=== PATIENT | female | born 1975 | race Caucasian/White ===

== ENCOUNTER 2020-10-07 04:49 | Emergency (ER) | payer SELFPAY | END 2020-10-07 05:17 | disposition home or self-care (01) | LOC: EMS 04:56 | DX: M25.511 Pain in right shoulder (principal); V47.5XXA Car driver injured in collision with fixed or stationary object in traffic accident, initial encounter; Y93.89 Activity, other specified; Y92.488 Other paved roadways as the place of occurrence of the external cause; Y99.8 Other external cause status | CPT/HCPCS: 99283 ==